=== PATIENT | female | born 1960 | race Hispanic/Latino ===

== ENCOUNTER → 2017-11-08 | Day surgery (SDC) | payer MEDICARE ==
[~2017-11-08] MED LIST: CLONIDINE HCL0.1 MG PO; DUREZOL5 ML OP; FENTANYL CITRATE/PF 100MCG/2 ML INJ ONE; GLIMEPIRIDE2 MG PO; HYDRALAZINE HCL50 MG PO; HYOSCYAMINE SULFATE 0.5 MG/ML INJ ONE; INSULIN REGULAR, HUMAN 100 UNIT/1 ML 3ML VIAL ONE; ISOSORBIDE MONO30 MG PO; LANTUS; LASIX40 MG PO; LORATADINE10 MG PO; MIDAZOLAM HCL 2 MG/2 ML VIAL ONE; OMEPRAZOLE40 MG PO; PRAVASTATIN SOD40 MG PO; PROPOFOL IV EMULSION 10 MG/ML 50 ML VIAL ONE; RAMIPRIL10 MG PO; SODIUM BICARBO650 MG PO; SODIUM CHLORIDE 0.9% 500ML 500 ML ONE; SYNTHROID50 MCG PO; TYLENOL WITH C1 EACH PO; ZESTRIL20 MG PO; [UNRECOGNIZED DRUG - OTHER]
[2017-11-08 12:18] LABS: BASOPHILS % 0.6 % (0.0-1.0); EOSINOPHILS # (AUTO) 0.2 (0.0-0.4); EOSINOPHILS % 3.1 % (0.0-6.0); HEMOGLOBIN 10.7 g/dL (12.0-16.0); LYMPHOCYTES # (AUTO) 1.8 (1.0-3.2); LYMPHOCYTES % 26.2 % (18.0-39.1); MEAN CORPUSCULAR HEMOGLOBIN 28.6 pg (28-32); MEAN CORPUSCULAR HGB CONC 33.4 g/dL (31-35); MEAN CORPUSCULAR VOLUME 85.6 fL (81-99); MONOCYTES # (AUTO) 0.5 (0.2-0.8); NEUTROPHILS # (AUTO) 4.2 (2.1-6.9); NEUTROPHILS % 61.9 % (38.7-80.0); PLATELET COUNT 200 x10e3/uL (140-360); RED BLOOD COUNT 3.74 x10e6/uL (3.6-5.1); RED CELL DISTRIBUTION WIDTH 14.1 % (11.7-14.4)
[2017-11-08 12:25] LABS: INR 1.24; PARTIAL THROMBOPLASTIN TIME 34.7 seconds (23.8-35.5); PROTHROMBIN TIME 14.7 seconds (11.9-14.5)
[2017-11-08 16:30] VITALS: BP 165/72
--- OUTSIDE RECORDS SUMMARY | 2017-12-08 05:54 | XMS REPORT | Continuity of Care Document ---
Author Author Interface Organization Interface Address Unknown Phone Unavailable Problems Problem Status Onset Date Classification Date Reported Comments Source Essential hypertension Active Problem 07/16/2016 Clement Krishnan Other nonspecific abnormal cardiovascular system function study Active Problem 07/16/2016 Clement Krishnan Patient unable to exercise Active Problem 07/16/2016 Clmeent Krishnan Claudication Active Problem 07/16/2016 Clement Krishnan Hyperlipidemia Active Problem 07/16/2016 Clement Krishnan Status post peripheral artery angioplasty Active Problem 07/16/2016 Clement Krishnan Varicose veins of leg with complications Active Problem 07/16/2016 Clement Krishnan Atherosclerosis of [place] arteries of extremity with intermittent claudication Active Problem 07/16/2016 Clement Krishnan Atherosclerotic peripheral vascular disease with intermittent claudication Active Problem 07/16/2016 Clement Krishnan Acquired hypothyroidism Active Problem 07/16/2016 Clement Krishnan Carotid bruit Active Problem 07/16/2016 Clement Krishnan Hypothyroidism Active Problem 07/16/2016 Clement Krishnan Chest pain Active Problem 07/16/2016 Clement Krishnan History of stroke Active Problem 07/16/2016 Clement Krishnan Abnormal EKG Active Problem 07/16/2016 Clement Krishnan DM Active Problem 07/16/2016 Clement Krishnan VAZ Active Problem 07/16/2016 Clement Krishnan ESRD Active Problem 07/16/2016 Clement Krishnan LAE Active Problem 08/23/2015 Clement Krishnan Nonrheumatic tricuspid valve disorder Active Problem Clement Krishnan Nonrheumatic mitral insufficiency Active Problem 2015 Clement Krishnan Medications Medication Details Route Status Patient Instructions Ordering Provider Order Date Source Pravastatin Sodium 1 tablet Orally Active 40 mg Orally Once a day Ariella 07/30/2015 Clement Krishnan Allergies, Adverse Reactions, Alerts Substance Category Reaction Severity Reaction type Status Date Reported Comments Source Immunizations Immunization Date Given Site Status Last Updated Comments Source Results Order Name Results Value Reference Range Date Interpretation Comments Source Vital Signs Vital Sign Value Date Comments Source Encounters Location Location Details Encounter Type Encounter Number Reason For Visit Attending Provider ADM Date DC Date Status Source Clement Krishnan MD [place] Unknown [id number] 201508/19/2015 Clement Kirshnan Procedures Procedure Code Date Perfomer Comments Source
--- OUTSIDE RECORDS SUMMARY | 2017-12-08 05:54 | XMS REPORT ---
Author [facility] Address Unknown Phone Unavailable Care Team Providers Care Flight Test Mechanic Name Role Phone JUNO JIMENEZ Unavailable Unavailable MARCOS ROSALES Unavailable Unavailable Problems This patient has no known problems. Allergies, Adverse Reactions, Alerts This patient has no known allergies or adverse reactions. Medications This patient has no known medications. Encounters Start Date/Time End Date/Time Encounter Type Admission Type Attending [facility] Facility Care Department Encounter ID 2016-10-21 00:00:00 2016-10-21 00:00:00 Outpatient [facility] [id number] 2016-10-21 00:00:00 2016-10-21 00:00:00 Outpatient [facility] [id number] 2016-10-19 00:00:00 2016-10-19 00:00:00 Outpatient [facility] [id number] 2016-10-14 14:36:08 2016-10-14 14:36:08 Outpatient [facility] [id number] 2016-09-15 00:00:00 2016-09-15 00:00:00 Outpatient [facility] [id number] 2016-08-16 00:00:00 2016-08-16 00:00:00 Outpatient [facility] [id number] 2016-08-13 00:00:00 2016-08-13 00:00:00 Outpatient [facility] [id number] 2016-08-12 00:00:00 2016-08-12 00:00:00 Outpatient [facility] [id number] 2016-08-11 14:06:03 2016-08-11 14:06:03 Outpatient [facility] [id number] 2016-08-06 00:00:00 2016-08-06 00:00:00 Outpatient [facility] [id number] 2016-08-04 09:12:51 2016-08-04 09:12:51 Outpatient [facility] [id number] 2016-07-29 00:00:00 2016-07-29 00:00:00 Outpatient [facility] [id number] 2016-07-29 00:00:00 2016-07-29 00:00:00 Outpatient [facility] [id number] 2016-07-22 09:02:40 2016-07-22 09:02:40 Outpatient [facility] [id number] Results Test Description Test Time Test Comments Text Results Atomic Results Result Comments BASIC METABOLIC PANEL 2017-06-23 08:05:00 SODIUM (BEAKER) (test oioa=406) 136 meq/L 136-145 POTASSIUM (BEAKER) (test ozhf=941) 4.9 meq/L 3.5-5.1 Specimen moderately hemolyzed CHLORIDE (BEAKER) (test hexb=189) 97 meq/L 98-107 CO2 (BEAKER) (test vhib=302) 26 meq/L 22-29 BLOOD UREA NITROGEN (BEAKER) (test ckvh=439) 15 mg/dL 7-21 CREATININE (BEAKER) (test grdz=303) 4.66 mg/dL 0.57-1.25 Specimen moderately hemolyzed GLUCOSE RANDOM (BEAKER) (test csek=479) 337 mg/dL 70-105 CALCIUM (BEAKER) (test ygqu=784) 8.9 mg/dL 8.4-10.2 EGFR (BEAKER) (test xbsp=0387) mL/min/1.73 sq m INSUFFICIENT CLINICAL DATA TO CALCULATE ESTIMATED GFR. CBC W/PLT COUNT & AUTO [id number] 07:48:00* Test Item Value Reference Range Comments WHITE BLOOD CELL COUNT (BEAKER) (test wzqh=176) 6.6 K/ L 3.5-10.5 RED BLOOD CELL COUNT (BEAKER) (test ydsf=802) 3.75 M/ L 3.93-5.22 HEMOGLOBIN (BEAKER) (test eota=577) 11.4 GM/DL 11.2-15.7 HEMATOCRIT (BEAKER) (test wxdo=308) 34.8 % 34.1-44.9 MEAN CORPUSCULAR VOLUME (BEAKER) (test giol=915) 92.8 fL 79.4-94.8 MEAN CORPUSCULAR HEMOGLOBIN (BEAKER) (test disi=489) 30.4 pg 25.6-32.2 MEAN CORPUSCULAR HEMOGLOBIN CONC (BEAKER) (test zvth=296) 32.8 GM/DL 32.2- 35.5 RED CELL DISTRIBUTION WIDTH (BEAKER) (test mkqp=811) 16.5 % 11.7-14.4 PLATELET COUNT (BEAKER) (test ghoy=624) 168 K/CU MM 150-450 MEAN PLATELET VOLUME (BEAKER) (test ugyd=981) 11.4 fL 9.4-12.3 NUCLEATED RED BLOOD CELLS (BEAKER) (test ceww=511) 0 /100 WBC 0-0 NEUTROPHILS RELATIVE PERCENT (BEAKER) (test egen=728) 62 % LYMPHOCYTES RELATIVE PERCENT (BEAKER) (test qtdz=529) 29 % MONOCYTES RELATIVE PERCENT (BEAKER) (test hqyf=235) 6 % EOSINOPHILS RELATIVE PERCENT (BEAKER) (test txzg=288) 2 % BASOPHILS RELATIVE PERCENT (BEAKER) (test rdqu=468) 1 % NEUTROPHILS ABSOLUTE COUNT (BEAKER) (test rogv=725) 4.09 K/ L 1.56-6.13 LYMPHOCYTES ABSOLUTE COUNT (BEAKER) (test maxx=067) 1.94 K/ L 1.18-3.74 MONOCYTES ABSOLUTE COUNT (BEAKER) (test ficd=086) 0.38 K/ L 0.24-0.36 EOSINOPHILS ABSOLUTE COUNT (BEAKER) (test impm=445) 0.14 K/ L 0.04-0.36 BASOPHILS ABSOLUTE COUNT (BEAKER) (test xirz=303) 0.04 K/ L 0.01-0.08 IMMATURE GRANULOCYTES-RELATIVE PERCENT (BEAKER) (test bwnb=7178) 1 % 0-1 OCCULT BLOOD, [id number] 12:31:00* Test Item Value Reference Range Comments FECAL OCCULT BLOOD (BEAKER) (test eafe=820) Positive Negative OCCULT BLOOD, [id number] 12:31:00* Test Item Value Reference Range Comments FECAL OCCULT BLOOD (BEAKER) (test oauu=989) Positive Negative CHEST SINGLE (PORTABLE) [place] [address] Patient Name: ILIR BOLANOS MR #: [id number] : 1960 Age/Sex: 56/F Req #: [id number] Adm Physician: Ordered by: DISHA LORENZO MD Report # : [id number] Location: ER Room/Bed: Procedure: [id number] -[id number] DX/CHEST SINGLE (PORTABLE) Exam Date: 11/01/16 Exam Time: 05 REPORT STATUS: Signed EXAM: Portable chest x-ray, AP 1 view DATE: November 01, 2016 Time stamp on exam: 0521 hours INDICATION: Chest pain COMPARISON: PA and lateral view of the chest December 02, 2015 A preliminary report was provided by Dr. Galan November 01, 2016 at 6:51 AM. FINDINGS: LINES/TUBES: None LUNGS: Interval development of diffuse bilateral airspace opacities PLEURA: No effusions or pneumothorax. HEART AND MEDIASTINUM: Normal size and contour. BONES AND SOFT TISSUES: No acute findings. IMPRESSION: Diffuse airspace opacities bilaterally, this could represent pulmonary edema, multifocal pneumonia, or metastatic disease. Signed by: Dr. Nicole Galan M.D. on 11/16/2016 10 :23 PM Dictated By: NICOLE GALAN MD 22 Transcribed By: HOSEA on 11/16/162222 COPY TO: DISHA LORENZO MD
--- OUTSIDE RECORDS SUMMARY | 2017-12-08 05:54 | XMS REPORT ---
Author Author Clement Krishnan Organization [employer] Address Unknown Phone Unavailable Care Team Providers Care Associate Vice President Name Role Phone Clement Krishnan CP Unavailable Allergies No Known Allergies Problems Problem Type Condition Code Onset Dates Condition Status Problem Essential hypertension I10 Active Problem Other nonspecific abnormal cardiovascular system function study R94.39 Active Problem Patient unable to exercise Z72.89 Active Problem Claudication I73.9 Active Problem Hyperlipidemia E78.5 Active Problem Status post peripheral artery angioplasty Z98.62 Active Problem Varicose veins of leg with complications I83.899 Active Problem Atherosclerosis of [place] arteries of extremity with intermittent claudication I70.219 Active Problem Atherosclerotic peripheral vascular disease with intermittent claudication I73.9 Active Problem Acquired hypothyroidism E03.9 Active Problem Carotid bruit R09.89 Active Problem Hypothyroidism E03.9 Active Problem Chest pain R07.9 Active Problem History of stroke Z86.73 Active Problem Abnormal EKG R94.31 Active Problem DM (diabetes mellitus) E11.9 Active Problem VAZ (dyspnea on exertion) R06.09 Active Problem ESRD (end stage renal disease) N18.6 Active Medications No Known Medications Results No Known Results Summary Purpose [employer] Submission
--- OUTSIDE RECORDS SUMMARY | 2017-12-08 05:54 | XMS REPORT ---
Author Author Clement Krishnan Organization [employer] Address Unknown Phone Unavailable Care Team Providers Care Data Migration Consultant Name Role Phone Clement Krishnan CP Unavailable Encounters Encounter Location Date Unknown Clement Krishnan MD [place] August 19, 2015 Problems Problem Type Condition ICD-9 Code Onset Dates Condition Status Problem LAE (left atrial enlargement) I51.7 Active Problem Other nonspecific abnormal cardiovascular system function study R94.39 Active Problem Patient unable to exercise Z72.89 Active Problem Claudication I73.9 Active Problem Carotid bruit R09.89 Active Problem Hyperlipidemia E78.5 Active Problem Status post peripheral artery angioplasty Z98.62 Active Problem Varicose veins of leg with complications I83.899 Active Problem Atherosclerosis of [place] arteries of extremity with intermittent claudication I70.219 Active Problem Atherosclerotic peripheral vascular disease with intermittent claudication I73.9 Active Problem Acquired hypothyroidism E03.9 Active Problem VAZ (dyspnea on exertion) R06.09 Active Problem Chest pain R07.9 Active Problem Hypothyroidism E03.9 Active Problem Abnormal EKG R94.31 Active Problem ESRD (end stage renal disease) N18.6 Active Problem Essential hypertension I10 Active Problem History of stroke Z86.73 Active Problem Nonrheumatic tricuspid valve disorder I36.9 Active Problem DM (diabetes mellitus) E11.9 Active Problem Nonrheumatic mitral (valve) insufficiency I34.0 Active Medications Medication Code System Code Instructions Start Date End Date Status Dosage Pravastatin Sodium MEDISPAN [address]-59 40 mg Orally Once a day July 30, 2015 Active 1 tablet Social History Social History Element Qualifiers Date Reported Smoking . Status Never Smoker July 30, 2015 Alcohol Use No. July 30, 2015 Alcohol Screening: No. Did you have a drink containing alcohol in the past year?: No, Points: 0, Interpretation: Negative July 30, 2015 Marital Status: . July 30, 2015 Do you drink alcohol? No. 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
--- OUTSIDE RECORDS SUMMARY | 2017-12-08 05:54 | XMS REPORT | Clinical Summary ---
Author Author WILLIAM [facility] Address Unknown Phone Unavailable Care Team Providers Care Student Success Coach Name Role Phone PCP Unavailable Allergies No Known Allergies Current Medications Prescription Sig. Disp. Refills Start End Date Status Date isosorbide dinitrate Take 30 mg by mouth 2 Active (ISORDIL) 30 MG tablet (two) times daily . furosemide (LASIX) 80 MG Take 80 mg by mouth daily Active tablet . levothyroxine (SYNTHROID, Take 25 mcg by mouth Active LEVOTHROID) 25 MCG tablet Every morning on an empty stomach. ramipril (ALTACE) 10 MG Take 10 mg by mouth Active capsule daily. sevelamer (RENVELA) 800 Take 800 mg by mouth 3 Active mg tablet (three) times daily with meals. TiZANidine (ZANAFLEX) 4 Take 4 mg by mouth 3 Active MG capsule (three) times daily as needed . insulin lispro Inject subcutaneously 2 Active protamin-lispro (HUMALOG (two) times daily with 75-25) 100 unit/mL breakfast and dinner. (75-25) InPn injection cloNIDine HCl (CATAPRES) Take 0.1 mg by mouth as Active 0.1 MG tablet needed. traMADol (ULTRAM) 50 mg Take 50 mg by mouth every Active tablet 6 (six) hours as needed for Pain. omeprazole (PRILOSEC) 40 Take 40 mg by mouth Active MG capsule daily. lisinopril Take 20 mg by mouth Active (PRINIVIL,ZESTRIL) 20 MG daily. tablet hydrALAZINE (APRESOLINE) Take 50 mg by mouth 3 Active 50 MG tablet (three) times daily. pravastatin (PRAVACHOL) Take 40 mg by mouth Active 40 MG tablet daily. metoclopramide (REGLAN) 5 Take 5 mg by mouth 3 Active MG tablet (three) times daily. loratadine (CLARITIN) 10 Take 10 mg by mouth Active mg tablet daily. sodium bicarbonate 650 MG Take 1 tablet by mouth Active tablet daily. clopidogrel (PLAVIX) 75 Take 75 mg by mouth 06/24/19 Discontin mg tablet daily. 18 ued metoprolol (TOPROL-XL) 50 Take 50 mg by mouth 06/24/19 Discontin MG 24 hr tablet daily. 18 ued NIFEdipine (PROCARDIA-XL) Take 60 mg by mouth 06/24/19 Discontin 60 MG (OSM) 24 hr tablet daily. 18 ued nitroglycerin (NITROSTAT) Place 0.4 mg under the 06/24/19 Discontin 0.4 MG SL tablet tongue every 5 (five) 18 ued minutes as needed for Chest pain Put 1 pill under tongue every 5min as needed for chest pain.No more than 3 doses in 15min.Call 911 if pain is unrelieved 5min after 1st dose . insulin aspart (NOVOLOG) Inject subcutaneously 3 06/24/19 Discontin 100 unit/mL InPn (three) times daily with 18 ued meals. senna (SENOKOT) 8.6 mg Take 1 tablet by mouth 06/24/19 Discontin tablet daily. 18 ued acetaminophen-codeine Take 1 tablet by mouth 30 tablet 0 06/24/19 (TYLENOL #4) 300-60 mg every 4 (four) hours as 18 18 per tablet needed for Pain for up to 10 days. Max Daily Amount: 6 tablets Active Problems Problem Noted Date CAD (coronary artery disease) 06/23/2017 Encounters Date Type Specialty Care Team Description 11/30/2017 Telephone Transplant Radha Ocasio Appointment ( is aware of her new appt on 12.15.17 and she's aware to check in at 1 pm and I have mailed the itinerary to the patient) 11/17/2017 Telephone Transplant Radha Ocasio Appointment (Ms. Reis is aware of her new appt date on 11.29.17 and to check in at 1:30 pm for her appt) 11/11/2017 Telephone Transplant Radha Ocasio Appointment (Per patient unable to keep her appt for 11/22/17 and the patient is aware of the new appt date 11.29.17 and to check in at 1:30 pm. The itinerary has been mailed to the patient) 11/10/2017 Telephone Transplant Nicci Yang RN Follow-up 11/10/2017 Telephone Transplant Radha Ocasio Appointment (Left a message for the patient to call back to confirm her appt for 11/22/17 at 1 pm. Per Tali at the hd unit she will give the patient her itinerary on her next visit. I have faxed the itinerary to the hd unit and mailed to the patient) 11/09/2017 Orders Only Transplant Nicci Yang RN Pre-transplant evaluation for chronic kidney disease (Primary Dx);ESRD (end stage renal disease) on dialysis (HCC) 11/09/2017 Telephone Transplant Nicci Yang RN Follow-up 09/09/2017 Telephone Transplant Nicci Yang RN Follow-up 09/09/2017 Telephone Transplant Nicci Yang RN Follow-up 08/15/2017 Telephone Transplant Nicci Yang RN Follow-up 06/23/2017 Hospital Jethro Melchor Encounter 06/23/2017 Procedure Pass 06/23/2017 Surgery Jethro Melchor L CATH & PCI 06/22/2017 Orders Only Cardiology Jethro Melchor MD 06/15/2017 Telephone Transplant Nicci Yang RN Kidney Transplant Pre-evaluation 05/30/2017 Outside Orders Lab Nicolas White Pre-transplant evaluation for chronic kidney disease;ESRD (end stage renal disease) on dialysis (HCC);Anemia of renal disease 05/19/2017 Telephone Transplant Nicci Yang RN Kidney Transplant Pre-evaluation 04/26/2017 Telephone Transplant Nicci Yang RN Kidney Transplant Pre-evaluation 04/15/2017 Telephone Transplant Nicci Yang RN Kidney Transplant Pre-evaluation 04/15/2017 Orders Only Transplant Nicci Yang RN ESRD (end stage renal disease) on dialysis (HCC) (Primary Dx);Lung nodule 03/31/2017 Orders Only Transplant Nicci Yang RN Pre-transplant evaluation for chronic kidney disease (Primary Dx);ESRD (end stage renal disease) on dialysis (HCC) 03/30/2017 Orders Only Transplant Nicci Yang RN Pre-transplant evaluation for chronic kidney disease (Primary Dx);ESRD (end stage renal disease) on dialysis (HCC);Anemia of renal disease 03/30/2017 Telephone Transplant Nicci Yang RN Kidney Transplant Pre-evaluation after 11/07/2016 Family History Medical History Relation Name Comments Kidney failure Brother Coronary artery disease Father Diabetes Father Hypertension Father Relation Name Status Comments Brother Father Social History Tobacco Use Types Packs/Day Years Used Date Never Smoker Alcohol Use Drinks/Week oz/Week Comments No Sex Assigned at Date Recorded Not on file Last Filed Vital Signs Vital Sign Reading Time Taken Blood Pressure 171/72 06/23/2017 1:34 PM CDT Pulse 89 06/23/2017 12:32 PM CDT Temperature 36.8 C (98.3 F) 06/23/2017 6:31 AM CDT Respiratory Rate 18 06/23/2017 12:32 PM CDT Oxygen Saturation 99% 06/23/2017 12:00 PM CDT Inhaled Oxygen - - Concentration Weight 76.2 kg (167 lb 14.4 oz) 06/23/2017 6:31 AM CDT Height 157.5 cm (5' 2") 06/23/2017 6:31 AM CDT Body Mass Index 30.71 06/23/2017 6:31 AM CDT Plan of Treatment Date Type Specialty Care Team Description 12/15/2017 Orders Only Transplant Hepatology Meenakshi Jefferson MD [address] [place] [address] [phone] 12/15/2017 Follow-Up Transplant Meenakshi Jefferson MD [address] [place] [address] [phone] 12/15/2017 Evaluation Transplant Meenakshi Jefferson MD [address] [place] [address] [phone] Health Maintenance Due Date Last Done Comments INFLUENZA VACCINE 12/05/2017 Implants Implanted Type Area Restrooms Or Lounges Maid Device Expiration Model / Identifier Date Serial / Lot Device Clsr Angio-Seal Vip 6fr Cardiovasc N/A: Groin ST VERN 2018 [id number] / [id number] - [id number] archie MED:CARDIAC / Implanted: Qty: 1 on 06/23/2017 by [id number] Jethro Meclhor MD Procedures Procedure Name Priority Date/Time Associated Diagnosis Comments L CATH & PCI 06/23/2017 Abnormal cardiac function 7:30 AM CDT test Case Notes 2CASE POP6 after 11/07/2016 Results * CARDIAC CATH REPORT - SCAN (07/05/2017 7:23 PM) Only the most recent of 2 results within the time period is included. * VASCULAR DIAGRAM -SCAN (07/05/2017 12:01 PM) Only the most recent of 2 results within the time period is included. * EKG-SCANNED (06/24/2017 9:01 AM) * CBC with platelet count + automated diff (06/23/2017 7:36 AM) Component Value Ref Range WBC 6.6 3.5 - 10.5 K/ L RBC 3.75 (L) 3.93 - 5.22 M/ L Hemoglobin 11.4 11.2 - 15.7 GM/DL Hematocrit 34.8 34.1 - 44.9 % MCV 92.8 79.4 - 94.8 fL MCH 30.4 25.6 - 32.2 pg MCHC 32.8 32.2 - 35.5 GM/DL RDW 16.5 (H) 11.7 - 14.4 % Platelets 168 150 - 450 K/CU MM MPV 11.4 9.4 - 12.3 fL nRBC 0 0 - 0 /100 WBC % Neutros 62 % % Lymphs 29 % % Monos 6 % % Eos 2 % % Baso 1 % # Neutros 4.09 1.56 - 6.13 K/ L # Lymphs 1.94 1.18 - 3.74 K/ L # Monos 0.38 (H) 0.24 - 0.36 K/ L # Eos 0.14 0.04 - 0.36 K/ L # Baso 0.04 0.01 - 0.08 K/ L Immature 1 0 - 1 % Granulocytes-Relative Specimen Performing Laboratory Blood [facility] [address] [address] * CBC with platelet count + automated diff (06/23/2017 7:36 AM) Specimen Performing Laboratory Blood Narrative The following orders were created for panel order CBC with platelet count + automated diff. Procedure Abnormality Status --------- - ------ CBC with platelet count ...[[id number]]AbnormalFinal result Please view results for these tests on the individual orders. * Basic metabolic panel (06/23/2017 7:36 AM) Component Value Ref Range Sodium 136 136 - 145 meq/L Potassium 4.9Comment: Specimen moderately hemolyzed 3.5 - 5.1 meq/L Chloride 97 (L) 98 - 107 meq/L CO2 26 22 - 29 meq/L BUN 15 7 - 21 mg/dL Creatinine 4.66 (H)Comment: Specimen moderately hemolyzed 0.57 - 1.25 mg/ dL Glucose 337 (H) 70 - 105 mg/dL Calcium 8.9 8.4 - 10.2 mg/dL EGFR Comment: INSUFFICIENT CLINICAL DATA TO CALCULATE mL/min/1.73 sq m ESTIMATED GFR. Specimen Performing Laboratory Blood [place] [id number] * Occult blood, stool (05/30/2017 12:29 PM) Only the most recent of 2 results within the time period is included. Component Value Ref Range Occult blood Positive (A) Negative Specimen Performing Laboratory Stool [address] [address] after 11/07/2016
== END | disposition home or self-care (01) ==
LOC: OR 10:00
PROVIDERS: ATTEND Internal Medicine Gastroenterology
DX: R19.5 Other fecal abnormalities (principal); D12.2 Benign neoplasm of ascending colon; D12.3 Benign neoplasm of transverse colon; K31.7 Polyp of stomach and duodenum; K29.70 Gastritis, unspecified, without bleeding; K29.80 Duodenitis without bleeding; K21.0 Gastro-esophageal reflux disease with esophagitis; K22.8 Other specified diseases of esophagus; K57.30 Diverticulosis of large intestine without perforation or abscess without bleeding; K44.9 Diaphragmatic hernia without obstruction or gangrene; K64.8 Other hemorrhoids; E78.5 Hyperlipidemia, unspecified; E11.22 Type 2 diabetes mellitus with diabetic chronic kidney disease; I12.0 Hypertensive chronic kidney disease with stage 5 chronic kidney disease or end stage renal disease; N18.6 End stage renal disease; Z01.810 Encounter for preprocedural cardiovascular examination; Z99.2 Dependence on renal dialysis; Z79.4 Long term (current) use of insulin; Z86.73 Personal history of transient ischemic attack (TIA), and cerebral infarction without residual deficits; Z68.30 Body mass index [BMI] 30.0-30.9, adult
CPT/HCPCS: 36415; 43239; 45385; 82948; 84132; 85025; 85610; 85730; 88305; 88312; 93005; J1980; J2250; J7040; 45378; 45384

== ENCOUNTER → 2019-05-08 | Outpatient (CLI) | payer MEDICARE ==
[~2019-05-08] MED LIST changes: -FENTANYL CITRATE/PF 100MCG/2 ML INJ ONE; +GABAPENTIN100 MG PO; -HYOSCYAMINE SULFATE 0.5 MG/ML INJ ONE; -INSULIN REGULAR, HUMAN 100 UNIT/1 ML 3ML VIAL ONE; -LANTUS; +LANTUS SQ; +LEVOTHYROXINE50 MCG PO; -MIDAZOLAM HCL 2 MG/2 ML VIAL ONE; +NOVOLOG100 UNIT/1 SQ; -PROPOFOL IV EMULSION 10 MG/ML 50 ML VIAL ONE
== END ==
LOC: RAD 05:00 → OR 08:57 → EDSTATUS 11:00
PROVIDERS: ATTEND Internal Medicine Gastroenterology
DX: Z01.818 Encounter for other preprocedural examination (principal); K22.70 Barrett's esophagus without dysplasia; Z86.010 Personal history of colon polyps; Z53.8 Procedure and treatment not carried out for other reasons
CPT/HCPCS: 36415; 82948; 93005; J7040

== ENCOUNTER → 2019-05-15 | Day surgery (SDC) | payer MEDICARE ==
[~2019-05-15] MED LIST changes: +FENTANYL CITRATE/PF 100MCG/2 ML INJ ONE; +GLUCAGON FOR INJ 1 MG VIAL ONE; +MIDAZOLAM HCL 2 MG/2 ML VIAL ONE; +PROPOFOL IV EMULSION 10 MG/ML 50 ML VIAL ONE
[2019-05-15 08:16] LABS: BASOPHILS # (AUTO) 0.1 (0.0-0.1); BASOPHILS % 0.8 % (0.0-1.0); EOSINOPHILS # (AUTO) 0.3 (0.0-0.4); EOSINOPHILS % 4.8 % (0.0-6.0); HEMATOCRIT 34.5 % (34.2-44.1); HEMOGLOBIN 10.7 g/dL (12.0-16.0); LYMPHOCYTES # (AUTO) 1.5 (1.0-3.2); LYMPHOCYTES % 24.1 % (18.0-39.1); MEAN CORPUSCULAR HEMOGLOBIN 29.2 pg (28-32); MONOCYTES # (AUTO) 0.3 (0.2-0.8); MONOCYTES % 5.5 % (4.4-11.3); NEUTROPHILS % 64.5 % (38.7-80.0); PLATELET COUNT 218 x10e3/uL (140-360); RED BLOOD COUNT 3.67 x10e6/uL (3.6-5.1); RED CELL DISTRIBUTION WIDTH 13.9 % (11.7-14.4)
[2019-05-15 08:34] LABS: INR 1.06; PROTHROMBIN TIME 14.5 seconds (11.9-14.5)
[2019-05-15 08:47] LABS: ANION GAP 15.7 mmol/L (8-16); CALCIUM 8.8 mg/dL (8.4-10.2); CREATININE, SERUM 6.1 mg/dL (0.57-1.11); POTASSIUM 4.7 mmol/L (3.5-5.1)
[2019-05-15 10:05] VITALS: BP 155/65
== END | disposition home or self-care (01) ==
LOC: OR 06:01
PROVIDERS: ATTEND Internal Medicine Gastroenterology
DX: K22.70 Barrett's esophagus without dysplasia (principal); D12.2 Benign neoplasm of ascending colon; D12.8 Benign neoplasm of rectum; K31.7 Polyp of stomach and duodenum; K29.70 Gastritis, unspecified, without bleeding; K31.89 Other diseases of stomach and duodenum; K57.30 Diverticulosis of large intestine without perforation or abscess without bleeding; K44.9 Diaphragmatic hernia without obstruction or gangrene; K21.9 Gastro-esophageal reflux disease without esophagitis; K64.8 Other hemorrhoids; G47.33 Obstructive sleep apnea (adult) (pediatric); E78.00 Pure hypercholesterolemia, unspecified; J30.2 Other seasonal allergic rhinitis; E11.22 Type 2 diabetes mellitus with diabetic chronic kidney disease; I12.0 Hypertensive chronic kidney disease with stage 5 chronic kidney disease or end stage renal disease; N18.6 End stage renal disease; Z79.4 Long term (current) use of insulin; Z99.2 Dependence on renal dialysis; Z86.73 Personal history of transient ischemic attack (TIA), and cerebral infarction without residual deficits; Z80.0 Family history of malignant neoplasm of digestive organs
CPT/HCPCS: 36415; 43239; 45384; 45385; 80048; 82948; 85025; 85610; 85730; 88305; 88312; J1610; J2250; J2704; J3010; J7040; 45378